=== PATIENT | female | born 1940 | race Hispanic/Latino ===

== ENCOUNTER 2018-02-27 09:47 | Day surgery (SDC) | payer OTHER ==
[2018-02-27] MEDS ORDERED: CYCLOPENTOLATE 1% OPTH 2 ML ONE (10:28)
[2018-02-27] MEDS ORDERED: NA CHLORIDE 0.9% 500 ML ONE (10:30)
[2018-02-27] MEDS ORDERED: PHENYLEPHRINE 10% OPTH 5ML ONE (10:32)
[2018-02-27] MEDS ORDERED: NS 0.9% VIAL 10 ML ONE (10:38)
[2018-02-27] MEDS ORDERED: BALANCED SALT IRRIG PLAIN 500 ML BTL IRR ONE (10:38)
[2018-02-27] MEDS ORDERED: EPINEPHRINE/PF 1 MG/ML AMP ONE ×2 (10:38→12:03)
[2018-02-27] MEDS ORDERED: DUOVISC 1 KIT OPTH ONE (10:39)
[2018-02-27] MEDS ORDERED: PHENYLEPHRINE 10% OPTH 5ML OPTH ONE ×2 (10:49→10:54)
[2018-02-27] MEDS ORDERED: CYCLOPENTOLATE 1% OPTH 2 ML OPTH ONE ×2 (10:49→10:54)
[2018-02-27] MEDS: BUPIVACAINE 0.25% PF 10 ML VIAL ONE ×2 (10:52→11:23)
[2018-02-27] MEDS: TETRACAINE HCL 0.5% 2ML OPTH ONE ×2 (10:52→11:22)
[2018-02-27] MEDS: LIDOCAINE 2% MPF 5 ML VIAL ONE ×2 (10:53→11:23)
[2018-02-27] MEDS ORDERED: PROPOFOL 200 MG/20 ML VIAL IV ONE (10:59)
[2018-02-27] MEDS: MOXIFLOXACIN HCL 10 DROPS/ML **OR USE OPTH ONE ×2 (11:46→12:19)
--- NOTE | 2018-02-27 12:30 | P.BOP ---
Preoperative diagnosis: Nuclear sclerotic and posterior subcapsular cataract OS Postoperative diagnosis: Same Primary procedure: Phacoemulsification with IOL OS Estimated blood loss: None Anesthesia: Local (Subtenon's infusion with anesthesia for cataract surgery) Complications: None Implants: ZCB00 +15.0 Transferred to: Other (Day surgery) Condition: Good
--- NOTE | 2018-02-27 18:17 | OP ---
Date of Procedure: 02/27/2018 Surgeon: Lizzette Haro MD Anesthesiologist: 1. Vidhya Wise CRNA. 2. Bon Saldivar M.D. Preoperative Diagnosis: Nuclear sclerotic cataract and posterior subcapsular, possible polar catarac t, left eye. Operation Performed: Phacoemulsification with intraocular lens implant, left eye. Anesthesia: Per cataract surgery. Complications: None Description Of Procedure: In day surgery, the patient was prepped with Betadine and draped. A conju nctival incision was made in the inferior nasal quadrant with Grecia scissors. A sub-Tenon block c onsisting of a 1:1 mixture of 2% Xylocaine and 0.25% bupivacaine was placed through the conjunctival incision with a blunt cannula. A Honan balloon was placed over the eye and the patient was transferr ed to the operating room. In the operating room the patient was prepped and draped in the usual sterile fashion for ophthalmic surgery. A lid speculum was placed in the left eye. Two paracentesis sites were made superiorly and inferiorly in the limbal cornea. Viscoat was placed in the anterior chamber and a crescent blade wa s used to make a corneal groove and tunnel, and a keratome was used to enter the anterior chamber. P rovisc was placed in the anterior chamber and a 360 degree capsulotomy was performed with a cystitome . The lens was hydrodissected with BSS and rotated freely. The lens was removed with a stop and cho p technique. 4.17 phaco CDE was used to remove the lens. Residual cortex was removed with the irrig ation and aspiration. Provisc was placed in the capsular bag. A ZCB00 +15.0 diopter lens was placed in the capsular bag without complications. Irrigation and aspiration was used to remove residual vi scoelastic. The paracentesis sites were hydrated with BSS. The wound and paracentesis sites were in spected and found to be watertight. Vigamox 0.07 cc was placed intracamerally at the end of the proc edure. The eye was irrigated with balanced salt solution. The eye was patched with a soft cotton pa tch and West metal shield. The patient was returned to day surgery in good condition. Comments: The lens was hydrodelineated rather than hydrodissected. During phacoemulsification 1:500 0 epinephrine was placed in the anterior chamber. The conjunctiva began swelling during phacoemulsif ication and was incised. It was reapproximated with cautery at the end of the procedure. One 10-0 P rolene suture was placed in the inferior paracentesis at the end of the procedure. Discharge Instructions: Ms. Ochoa was discharged to home in good condition. DEVORAH/AMAURY Voice ID: [id number] Report ID: [id number]
== END 2018-02-27 13:05 | disposition home or self-care (01) ==
LOC: OR 09:47
PROVIDERS: ATTEND Ophthalmology Retina Specialist
PROC: 08RK3JZ Replacement of Left Lens with Synthetic Substitute, Percutaneous Approach (ICD-10-PCS; principal; 2018-02-27 10:30)
DX: H25.12 Age-related nuclear cataract, left eye (principal); H25.042 Posterior subcapsular polar age-related cataract, left eye; E07.9 Disorder of thyroid, unspecified; M81.0 Age-related osteoporosis without current pathological fracture; Z88.0 Allergy status to penicillin; Z88.6 Allergy status to analgesic agent; Z90.49 Acquired absence of other specified parts of digestive tract; Z83.3 Family history of diabetes mellitus
CPT/HCPCS: 66984; J0171 ×2

== ENCOUNTER 2020-08-24 11:40 | Emergency (ER) | payer OTHER ==
--- NOTE | 2020-08-24 15:10 | EDPHYS ---
Physician Documentation [facility] Name: Aniyah Ochoa Age: 80 yrs Sex: Female : 1940 Arrival Date: 08/24/2020 Time: 11:43 Bed 19 Private MD: Damon Smith V ED Physician Jonatan Rosales HPI: 08/24 15:18 This 80 yrs old Female presents to ER via Ambulatory with complaints of Leg kb Pain. 15:18 The patient presents with decreased range of motion, pain, that is acute. The kb complaints affect the posterior aspect of left knee and lateral aspect of left knee. Context: The problem was sustained at home, resulted from an unknown cause, the patient can fully bear weight, the patient is able to ambulate, Problem is a result from a previous injury: No. Onset: The symptoms/episode began/occurred last night. Modifying factors: The symptoms are alleviated by nothing. the symptoms are aggravated by nothing. Associated signs and symptoms: The patient has no apparent associated signs or symptoms. Treatment prior to arrival includes: no previous treatment. Severity of symptoms: At their worst the symptoms were mild, moderate, in the emergency department the symptoms are unchanged. The patient has not experienced similar symptoms in the past. The patient has not recently seen a physician. Pt reports pain to posterior and lateral left knee that started overnight. Denies injury or trauma. Historical: - Allergies: 11:55 Amoxicillin; ll1 - PSHx: 11:55 Cholecystectomy; ll1 - Immunization history:: Flu vaccine is not up to date. - Social history:: Smoking status: Patient denies any tobacco usage or history of. ROS: 15:16 Constitutional: Negative for fever, chills, and weight loss, Cardiovascular: Negative kb for chest pain, palpitations, and edema, Respiratory: Negative for shortness of breath, cough, wheezing, and pleuritic chest pain, Abdomen/GI: Negative for abdominal pain, nausea, vomiting, diarrhea, and constipation, Skin: Negative for injury, rash, and discoloration, Neuro: Negative for headache, weakness, numbness, tingling, and seizure. 15:16 MS/extremity: Positive for decreased range of motion, pain, of the lateral aspect of left knee and posterior aspect of left knee. Exam: 15:16 Constitutional: This is a well developed, well nourished patient who is awake, alert, kb and in no acute distress. Head/Face: Normocephalic, atraumatic. Chest/axilla: Normal chest wall appearance and motion. Nontender with no deformity. No lesions are appreciated. Cardiovascular: Regular rate and rhythm with a normal S1 and S2. No gallops, murmurs, or rubs. Normal PMI, no JVD. No pulse deficits. Respiratory: Lungs have equal breath sounds bilaterally, clear to auscultation and percussion. No rales, rhonchi or wheezes noted. No increased work of breathing, no retractions or nasal flaring. Abdomen/GI: Soft, non-tender, with normal bowel sounds. No distension or tympany. No guarding or rebound. No evidence of tenderness throughout. Skin: Warm, dry with normal turgor. Normal color with no rashes, no lesions, and no evidence of cellulitis. MS/ Extremity: Pulses equal, no cyanosis. Neurovascular intact. Full, normal range of motion. Neuro: Awake and alert, GCS 15, oriented to person, place, time, and situation. Cranial nerves II-XII grossly intact. Motor strength 5/5 in all extremities. Sensory grossly intact. Cerebellar exam normal. Normal gait. Vital Signs: 11:56 BP 126 / 72; Pulse 68; Resp 16; Temp 98.6; Pulse Ox 98% on R/A; Weight 51.71 kg; Height ll1 5 ft. 3 in. (160.02 cm); Pain 6/10; 11:56 Body Mass Index 20.19 (51.71 kg, 160.02 cm) ll1 MDM: 13:27 Patient medically screened. kb 15:09 Data reviewed: vital signs, nurses notes. Data interpreted: Pulse oximetry: on room air kb is 98 %. Interpretation: normal. Counseling: I had a detailed discussion with the patient and/or guardian regarding: the historical points, exam findings, and any diagnostic results supporting the discharge/admit diagnosis, radiology results, the need for outpatient follow up, a family practitioner, to return to the emergency department if symptoms worsen or persist or if there are any questions or concerns that arise at home. 08/24 13:02 Order name: Knee Left 3 View XRAY kb 08/24 13:34 Order name: US Extremity Venous Unilateral Ltd kb Administered Medications: No medications were administered Disposition: 17:08 Co-signature as Attending Physician, Jonatan Rosales MD. ma2 Disposition: 08/24/20 15:10 Discharged to Home. Impression: Synovial cyst of popliteal space [Forrest], left knee. - Condition is Stable. - Discharge Instructions: Forrest Cyst. - Medication Reconciliation Form, Thank You Letter, Antibiotic Education, Prescription Opioid Use form. - Follow up: Emergency Department; When: As needed; Reason: Worsening of condition. Follow up: Private Physician; When: 2 - 3 days; Reason: Recheck today's complaints, Continuance of care, Re-evaluation by your physician. Signatures: Dispatcher [employer] EDMS Genevieve Walters, DIRECTOR GRAPHICS-C DIRECTOR GRAPHICS-Beryl Dorantes, RN RN Jonatan Fair MD MD ma2 Melita Negron RN RN ll1 Corrections: (The following items were deleted from the chart) 15:19 15:18 Pt reports pain to posterior and lateral left knee that started overnight. kb kb 15:21 15:10 08/24/2020 15:10 Discharged to Home. Impression: Synovial cyst of popliteal space hb [Forrest], left knee. Condition is Stable. Forms are Medication Reconciliation Form, Thank You Letter, Antibiotic Education, Prescription Opioid Use. Follow up: Emergency Department; When: As needed; Reason: Worsening of condition. Follow up: Private Physician; When: 2 - 3 days; Reason: Recheck today's complaints, Continuance of care, Re-evaluation by your physician. kb
--- NOTE | 2020-08-24 15:10 | ER ---
Nurse's Notes [facility] Name: Aniyah Ochoa Age: 80 yrs Sex: Female : 1940 Arrival Date: 08/24/2020 Time: 11:43 Bed 19 Private MD: Damon Smith V Diagnosis: Synovial cyst of popliteal space [Forrest], left knee Presentation: 08/24 11:56 Chief complaint: Patient states: L lateral knee pain started throughout the night. ll1 Cannot straighten the knee fully. No trauma or falls. Coronavirus screen: Client denies travel out of the [place] in the last 14 days. At this time, the client does not indicate any symptoms associated with coronavirus-19. Ebola Screen: Patient denies travel to an Ebola-affected area in the 21 days before illness onset. Initial Sepsis Screen: Does the patient meet any 2 criteria? No. Patient's initial sepsis screen is negative. Does the patient have a suspected source of infection? Yes: Bone or joint infection. Risk Assessment: Do you want to hurt yourself or someone else? Patient reports no desire to harm self or others. Onset of symptoms was August 24, 2020. 11:56 Method Of Arrival: Ambulatory ll1 11:56 Acuity: HIGINIO 4 ll1 Historical: - Allergies: 11:55 Amoxicillin; ll1 - PSHx: 11:55 Cholecystectomy; ll1 - Immunization history:: Flu vaccine is not up to date. - Social history:: Smoking status: Patient denies any tobacco usage or history of. Vital Signs: 11:56 BP 126 / 72; Pulse 68; Resp 16; Temp 98.6; Pulse Ox 98% on R/A; Weight 51.71 kg; Height ll1 5 ft. 3 in. (160.02 cm); Pain 6/10; 11:56 Body Mass Index 20.19 (51.71 kg, 160.02 cm) ll1 ED Course: 11:43 Patient arrived in ED. ds1 11:45 Damon Smith MD is Private Physician. ds1 11:57 Triage completed. ll1 11:57 Arm band placed on. ll1 13:27 Genev[facility]-C [facility]. kb 13:27 Jonatan Rosales MD is Attending Physician. kb 13:36 Knee Left 3 View XRAY In Process Unspecified. EDMS 13:44 Ruddy Pereyra, RN is Primary Nurse. axel 15:20 No provider procedures requiring assistance completed. Patient did not have IV access hb during this emergency room visit. 15:21 US Extremity Venous Unilateral Ltd In Process Unspecified. EDMS Administered Medications: No medications were administered Outcome: 15:10 Discharge ordered by . siddhartha 15:20 Discharged to home ambulatory. hb 15:20 Condition: stable 15:20 Discharge instructions given to patient, Instructed on discharge instructions, follow up and referral plans. medication usage, Demonstrated understanding of instructions, follow-up care, medications. 15:21 Patient left the ED. hb Signatures: Dispatcher [employer] EDMS Genevieve Walters, CUT OFF OPERATOR SCORER-C CUT OFF OPERATOR SCORER-Gladis Zaragoza ds1 Beryl Freitas, RN RN Ruddy Pereyra, RN RN jl7 Melita Negron RN RN ll1
--- NOTE | 2020-08-24 15:22 | RAD REPORT ---
EXAM DESCRIPTION: RAD - Knee Left 3 View - 08/24/2020 1:35 pm CLINICAL HISTORY: PAIN COMPARISON: No comparisons FINDINGS: No fracture, dislocation or periosteal reaction.Small joint effusion is seen. Medial and l ateral compartment marginal spurring present. There is minimal spurring along the superior articular margin of patella. No significant joint space narrowing. No soft tissue abnormality. IMPRESSION: Left knee joint degenerative change along with small joint effusion. No acute bone findi ng. Clinical concerns for internal derangement or occult bony injury could be further assessed with MR im aging.
[2020-08-24 15:26] VITALS: BP 126/72; TEMP 98.6; O2SAT 98
--- NOTE | 2020-08-24 15:37 | RAD REPORT ---
EXAM DESCRIPTION: US - Extremity Venous Uni Ltd - 08/24/2020 3:21 pm CLINICAL HISTORY: PAIN, left lower extremity COMPARISON: None. TECHNIQUE: Real-time sonographic evaluation of the left lower extremity deep venous system was perfo rmed. FINDINGS: Normal compressibility, flow augmentation, phasic flow and spontaneous flow are identified in the left lower extremity common femoral, superficial femoral, popliteal and posterior tibial vein s. No intraluminal filling defects seen. A 4.5 x 3 x 1.5 centimeter popliteal fossa cyst is present. No cyst rupture or hemorrhage findings seen. IMPRESSION: No DVT in the left lower extremity. Approximately 4.5 cm popliteal fossa cyst without rupture or hemorrhage changes identifiable.
== END 2020-08-24 15:21 | disposition home or self-care (01) ==
LOC: ER 11:40
DX: M71.22 Synovial cyst of popliteal space [Baker], left knee (principal); Z88.1 Allergy status to other antibiotic agents
CPT/HCPCS: 93971; 99283